=== PATIENT | male | born 1960 | race Caucasian/White ===

== ENCOUNTER 2021-10-08 09:45 | Emergency (ER) | payer MEDICAID ==
[2021-10-08 10:45] LABS: CHLORIDE,CL 107 mEq/L (98-106); SODIUM,NA 143 mEq/L (136-145)
[2021-10-08 10:50] LABS: ESTIMATED GFR > 60 mL/min (>=60)
[2021-10-08 11:01] LABS: CORONAVIRUS COVID-19 NAA NEGATIVE (NEGATIVE)
[2021-10-08] MEDS: Iopamidol 755 Mg/ML 100 ML Bottle IVPUSH ONE (11:34)
== END 2021-10-08 12:10 | disposition home or self-care (01) ==
LOC: CC.ED 09:45 → SUPCPDRO 09:45 → CC.ED 12:10
DX: J18.9 Pneumonia, unspecified organism (principal); I11.0 Hypertensive heart disease with heart failure; I50.9 Heart failure, unspecified; I48.91 Unspecified atrial fibrillation; F17.210 Nicotine dependence, cigarettes, uncomplicated; Z95.0 Presence of cardiac pacemaker; Z86.16 Personal history of COVID-19; Z20.822 Contact with and (suspected) exposure to COVID-19
CPT/HCPCS: 0240U; 36415; 71046; 71275; 80053; 84484; 85025; 85379; 85610; 93005; 99284; 99285-25; Q9967

== ENCOUNTER 2021-10-19 10:03 | Emergency (ER) | payer MEDICAID ==
[2021-10-19] MEDS ORDERED: Furosemide 40 MG Tab PO ONE (11:15)
== END 2021-10-19 12:17 | disposition home or self-care (01) ==
LOC: CC.ED 10:03
DX: I11.0 Hypertensive heart disease with heart failure (principal); I50.9 Heart failure, unspecified; Z79.899 Other long term (current) drug therapy; Z72.0 Tobacco use; Z88.8 Allergy status to other drugs, medicaments and biological substances
CPT/HCPCS: 36415; 71046; 80053; 83735; 83880; 84484; 85025; 93005; 99284; 99285-25; A9270-GY

== ENCOUNTER 2023-06-15 16:04 | Emergency (ER) | payer MEDICAID ==
[2023-06-15 16:21] LABS: BASOPHILS PERCENT AUTO 1.5 % (0-1); EOSINOPHILS ABSOLUTE AUTO 0.03 10^3/uL (0.00-1.50); EOSINOPHILS PERCENT AUTO 0.4 % (0-6); HEMATOCRIT 41.3 % (42.0-52.0); HEMOGLOBIN 13.3 g/dL (14.0-18.0); IMMATURE GRAN ABSOLUTE AUTO 0.01 10^3/uL (0.00-0.49); IMMATURE GRAN PERCENT AUTO 0.1 % (0.0-4.9); LYMPHOCYTES PERCENT AUTO 16.5 % (24-44); MEAN CORPUSCULAR HEMOGLOBIN 31.2 pg (27.0-32.0); MEAN CORPUSCULAR HGB CONC 32.2 g/dL (32.0-36.0); MEAN CORPUSCULAR VOLUME 96.9 fL (83.0-97.0); MONOCYTES ABSOLUTE AUTO 0.84 10^3/uL (0.00-1.50); MONOCYTES PERCENT AUTO 12.6 % (0-10); NEUTROPHILS ABSOLUTE AUTO 4.59 x10^3/uL (1.80-8.00); NEUTROPHILS PERCENT AUTO 68.9 % (41-71); PLATELET COUNT,PLT 190 10^3/uL (150-400); RED BLOOD CELL COUNT 4.26 x10^6/uL (4.50-6.00); WHITE BLOOD CELL COUNT,WBC 6.7 10^3/uL (4.0-11.0)
[2023-06-15 16:39] LABS: ALBUMIN 3.5 g/dL (3.4-5.0); BILIRUBIN TOTAL 4.1 mg/dL (0.0-1.0); C-REACTIVE PROTEIN 3.51 mg/dL (<=0.50); CALCIUM 9.1 mg/dL (8.4-10.1); EST CRCL DRUG DOSING (CG) 43.11 mL/min; MAGNESIUM 2.6 mg/dL (1.8-2.4); PROTEIN TOTAL,TP 6.9 g/dL (6.4-8.2)
[2023-06-15] MEDS: Sodium Chloride 0.9% 1,000 ML IV ONE (17:00)
[2023-06-15 17:46] LABS: CORONAVIRUS COVID-19 NAA NEGATIVE (NEGATIVE); INFLUENZA A NAA NEGATIVE (NEGATIVE); INFLUENZA B NAA NEGATIVE (NEGATIVE)
[2023-06-15] MEDS: fentaNYL 50 MCG/ML SDV IVPUSH ONE (18:29)
[2023-06-15 19:42] LABS: INR 1.89 (0.92-1.18); PROTHROMBIN TIME 19.2 SEC (9.3-11.3)
[2023-06-15] MEDS: Sodium Chloride 0.9% 1,000 ML IV SCH (20:17)
[2023-06-15] MEDS: Ondansetron 4 MG/2 ML SDV IVPUSH STA (20:48)
[2023-06-15] MEDS: HYDROmorphone 0.5 MG/0.5 ML Syringe IVPUSH ONE (21:30)
[2023-06-16 21:41] LABS: AMMONIA 44 umol/L (6-47)
== END 2023-06-15 21:33 ==
LOC: CC.ED 16:04
DX: N17.9 Acute kidney failure, unspecified (principal); K72.00 Acute and subacute hepatic failure without coma; R10.11 Right upper quadrant pain; I25.10 Atherosclerotic heart disease of native coronary artery without angina pectoris; I11.0 Hypertensive heart disease with heart failure; I50.9 Heart failure, unspecified; Z95.0 Presence of cardiac pacemaker; Z79.899 Other long term (current) drug therapy
CPT/HCPCS: 0240U; 36415; 71046; 74176; 80053; 80143; 80307; 82140; 83690; 83735; 83880; 84484; 85025; 85610; 85730; 86140; 93005; 93010; 96361; 96374; 96375; 99284; 99285-25; J1170; J2405; J3010; J7030

== ENCOUNTER 2023-06-25 22:53 | Emergency (ER) | payer MEDICAID ==
[2023-06-25] MEDS: Sodium Chloride 0.9% 1,000 ML IV ONE (23:17)
[2023-06-25 23:48] LABS: BASOPHILS ABSOLUTE AUTO 0.06 10^3/uL (0.00-0.50); EOSINOPHILS ABSOLUTE AUTO 0.08 10^3/uL (0.00-1.50); EOSINOPHILS PERCENT AUTO 1.3 % (0-6); HEMATOCRIT 50.3 % (42.0-52.0); HEMOGLOBIN 16.8 g/dL (14.0-18.0); IMMATURE GRAN ABSOLUTE AUTO 0.01 10^3/uL (0.00-0.49); IMMATURE GRAN PERCENT AUTO 0.2 % (0.0-4.9); LYMPHOCYTES ABSOLUTE AUTO 1.36 10^3/uL (0.60-5.00); LYMPHOCYTES PERCENT AUTO 21.8 % (24-44); MEAN CORPUSCULAR HEMOGLOBIN 30.5 pg (27.0-32.0); MEAN CORPUSCULAR HGB CONC 33.4 g/dL (32.0-36.0); MEAN CORPUSCULAR VOLUME 91.3 fL (83.0-97.0); MONOCYTES ABSOLUTE AUTO 0.88 10^3/uL (0.00-1.50); MONOCYTES PERCENT AUTO 14.1 % (0-10); NEUTROPHILS ABSOLUTE AUTO 3.84 x10^3/uL (1.80-8.00); NEUTROPHILS PERCENT AUTO 61.6 % (41-71); PLATELET COUNT,PLT 212 10^3/uL (150-400); RED BLOOD CELL COUNT 5.51 x10^6/uL (4.50-6.00); WHITE BLOOD CELL COUNT,WBC 6.2 10^3/uL (4.0-11.0)
[2023-06-25 23:59] LABS: LACTIC ACID 3.2 mmol/L (0.4-2.0)
[2023-06-26 00:04] LABS: ALBUMIN 3.4 g/dL (3.4-5.0); BILIRUBIN TOTAL 1.8 mg/dL (0.0-1.0); CALCIUM 8.7 mg/dL (8.4-10.1); EST CRCL DRUG DOSING (CG) 43.11 mL/min; PROTEIN TOTAL,TP 7.4 g/dL (6.4-8.2)
[2023-06-26 00:10] LABS: APPEARANCE,URINE CLEAR (CLEAR); BILIRUBIN,URINE MODERATE (NEGATIVE); COLOR,URINE AMBER (YELLOW); GLUCOSE,URINE NEGATIVE (NEGATIVE); KETONES,URINE TRACE mg/dL (NEGATIVE); LEUKOCYTE ESTERASE,URINE NEGATIVE (NEGATIVE); NITRITE,URINE NEGATIVE (NEGATIVE); OCCULT BLOOD,URINE NEGATIVE (NEGATIVE); PH,URINE 5.5 (4.5-8.0); PROTEIN,URINE 30 mg/dL (NEGATIVE)
[2023-06-26 00:15] LABS: BACTERIA,URINE NOT SEEN /HPF (NOT SEEN); EPITHELIAL CELLS,URINE OCCASIONAL /HPF (NOT SEEN); RBC,URINE NOT SEEN /HPF (0-5); WBC,URINE NOT SEEN /HPF (0-5)
[2023-06-26 00:16] LABS: MUCUS,URINE OCCASIONAL /HPF (NOT SEEN)
[2023-06-26 00:20] LABS: CORONAVIRUS COVID-19 NAA NEGATIVE (NEGATIVE); INFLUENZA A NAA NEGATIVE (NEGATIVE); INFLUENZA B NAA NEGATIVE (NEGATIVE); RESPIRATORY SYNCYTIAL VIR NAA NEGATIVE (NEGATIVE)
[2023-06-26] MEDS: Potassium Chloride 20 MEQ Tab.ER PO ONE (00:24)
[2023-06-26] MEDS: Sodium Chloride 0.9% 1,000 ML IV ONE (00:26)
== END 2023-06-26 00:45 | disposition home or self-care (01) ==
LOC: CC.ED 22:53
DX: E87.6 Hypokalemia (principal); E16.2 Hypoglycemia, unspecified; R74.01 Elevation of levels of liver transaminase levels; I11.0 Hypertensive heart disease with heart failure; I50.9 Heart failure, unspecified; Z79.899 Other long term (current) drug therapy
CPT/HCPCS: 0241U; 36415; 80053; 81001; 83605; 83735; 83880; 84484; 85025; 87040; 93005; 96360; 99284-25; A9270-GY; J7030

== ENCOUNTER 2023-11-04 07:23 | Emergency (ER) | payer MEDICAID ==
[2023-11-04] MEDS ORDERED: Ondansetron 4 MG/2 ML SDV IVPUSH PRN (07:54)
[2023-11-04 07:58] LABS: BASOPHILS ABSOLUTE AUTO 0.11 10^3/uL (0.00-0.50); BASOPHILS PERCENT AUTO 1.5 % (0-1); EOSINOPHILS ABSOLUTE AUTO 0.03 10^3/uL (0.00-1.50); EOSINOPHILS PERCENT AUTO 0.4 % (0-6); HEMATOCRIT 42.8 % (42.0-52.0); HEMOGLOBIN 14.1 g/dL (14.0-18.0); IMMATURE GRAN ABSOLUTE AUTO 0.01 10^3/uL (0.00-0.49); IMMATURE GRAN PERCENT AUTO 0.1 % (0.0-4.9); LYMPHOCYTES ABSOLUTE AUTO 1.08 10^3/uL (0.60-5.00); LYMPHOCYTES PERCENT AUTO 14.6 % (24-44); MEAN CORPUSCULAR HEMOGLOBIN 31.5 pg (27.0-32.0); MEAN CORPUSCULAR HGB CONC 32.9 g/dL (32.0-36.0); MEAN CORPUSCULAR VOLUME 95.5 fL (83.0-97.0); MONOCYTES ABSOLUTE AUTO 0.75 10^3/uL (0.00-1.50); MONOCYTES PERCENT AUTO 10.1 % (0-10); NEUTROPHILS ABSOLUTE AUTO 5.43 x10^3/uL (1.80-8.00); NEUTROPHILS PERCENT AUTO 73.3 % (41-71); PLATELET COUNT,PLT 187 10^3/uL (150-400); RED BLOOD CELL COUNT 4.48 x10^6/uL (4.50-6.00); WHITE BLOOD CELL COUNT,WBC 7.4 10^3/uL (4.0-11.0)
[2023-11-04 08:12] LABS: INR 1.77 (0.92-1.18); PROTHROMBIN TIME 18.1 SEC (9.3-11.3); PTT,PARTIAL THROMBOPLSTIN TIME 26.3 SEC (20.0-30.0)
[2023-11-04 08:19] LABS: ALBUMIN 3.7 g/dL (3.4-5.0); BILIRUBIN TOTAL 3.6 mg/dL (0.0-1.0); CALCIUM 9.6 mg/dL (8.4-10.1); CREATININE 2.4 mg/dL (0.7-1.3); EST CRCL DRUG DOSING (CG) 35.48 mL/min; MAGNESIUM 2.3 mg/dL (1.8-2.4); PROTEIN TOTAL,TP 7.3 g/dL (6.4-8.2)
[2023-11-04 08:31] LABS: APPEARANCE,URINE CLEAR (CLEAR); BILIRUBIN,URINE NEGATIVE (NEGATIVE); COLOR,URINE DARK YELLOW (YELLOW); GLUCOSE,URINE NEGATIVE (NEGATIVE); KETONES,URINE NEGATIVE (NEGATIVE); LEUKOCYTE ESTERASE,URINE NEGATIVE (NEGATIVE); NITRITE,URINE NEGATIVE (NEGATIVE); OCCULT BLOOD,URINE NEGATIVE (NEGATIVE); PH,URINE 5.5 (4.5-8.0); PROTEIN,URINE NEGATIVE (NEGATIVE)
[2023-11-04 08:39] LABS: AMPHETAMINES,URINE NEGATIVE (NEGATIVE); BARBITURATES,URINE NEGATIVE (NEGATIVE); BENZODIAZEPINE,URINE NEGATIVE (NEGATIVE); MDMA (ECSTASY), URINE NEGATIVE (NEGATIVE); METHADONE,URINE NEGATIVE (NEGATIVE); METHAMPHETAMINES,URINE POSITIVE (NEGATIVE); OPIATES,URINE NEGATIVE (NEGATIVE); OXYCODONE,URINE NEGATIVE (NEGATIVE); PHENCYCLIDINE,URINE NEGATIVE (NEGATIVE); TCA,URINE NEGATIVE (NEGATIVE)
[2023-11-04] MEDS ORDERED: Naloxone 2 MG/2 ML Syringe IVPUSH PRN (09:12)
[2023-11-04] MEDS: fentaNYL 50 MCG/ML SDV IVPUSH ONE (09:39)
[2023-11-04] MEDS: HYDROmorphone 0.5 MG/0.5 ML Syringe IVPUSH ONE (10:34)
[2023-11-04] MEDS: Furosemide 40 MG/4 ML VIAL IVPUSH ONE (10:34)
== END 2023-11-04 11:26 ==
LOC: CC.ED 07:23
DX: I11.0 Hypertensive heart disease with heart failure (principal); I50.9 Heart failure, unspecified; K76.7 Hepatorenal syndrome; F15.90 Other stimulant use, unspecified, uncomplicated; I48.91 Unspecified atrial fibrillation; F17.210 Nicotine dependence, cigarettes, uncomplicated; Z95.0 Presence of cardiac pacemaker; Z79.01 Long term (current) use of anticoagulants; Z79.899 Other long term (current) drug therapy
CPT/HCPCS: 36415; 71046; 74019; 74176; 80053; 80305-QW; 81003; 83690; 83735; 83880; 84484; 85025; 85610; 85730; 93005; 96374; 96375; 99284; 99285-25; J1170; J1940; J3010

== ENCOUNTER 2023-11-14 00:32 | Emergency (ER) | payer MEDICAID ==
[2023-11-14] MEDS ORDERED: Ondansetron 4 MG/2 ML SDV ONE (00:58)
[2023-11-14] MEDS ORDERED: Sodium Chloride 0.9% 1,000 ML ONE (00:58)
[2023-11-14] MEDS ORDERED: Sodium Chloride 0.9% 1,000 ML IV ONE (01:05)
[2023-11-14] MEDS ORDERED: Ondansetron 4 MG/2 ML SDV IVPUSH ONE (01:07)
[2023-11-14] MEDS ORDERED: Pantoprazole 40 MG Vial ONE (01:19)
[2023-11-14] MEDS ORDERED: Pantoprazole 40 MG Vial IVPUSH ONE (01:20)
[2023-11-14] MEDS ORDERED: Take Home: Ondansetron 4 MG Tab.DIS, 2 Tab Pack ONE (01:52)
[2023-11-14] MEDS ORDERED: Take Home: Ondansetron 4 MG Tab.DIS, 2 Tab Pack PO ONE (02:00)
[2023-11-14 15:19] LABS: BASOPHILS ABSOLUTE AUTO 0.07 10^3/uL (0.00-0.50); BASOPHILS PERCENT AUTO 1.1 % (0-1); EOSINOPHILS ABSOLUTE AUTO 0.02 10^3/uL (0.00-1.50); EOSINOPHILS PERCENT AUTO 0.3 % (0-6); HEMATOCRIT 41.4 % (42.0-52.0); HEMOGLOBIN 13.8 g/dL (14.0-18.0); IMMATURE GRAN ABSOLUTE AUTO 0.01 10^3/uL (0.00-0.49); IMMATURE GRAN PERCENT AUTO 0.2 % (0.0-4.9); LYMPHOCYTES ABSOLUTE AUTO 1.04 10^3/uL (0.60-5.00); MEAN CORPUSCULAR HEMOGLOBIN 31.2 pg (27.0-32.0); MEAN CORPUSCULAR HGB CONC 33.3 g/dL (32.0-36.0); MEAN CORPUSCULAR VOLUME 93.5 fL (83.0-97.0); MONOCYTES PERCENT AUTO 9.8 % (0-10); NEUTROPHILS ABSOLUTE AUTO 4.36 x10^3/uL (1.80-8.00); NEUTROPHILS PERCENT AUTO 71.6 % (41-71); PLATELET COUNT,PLT 183 10^3/uL (150-400); RED BLOOD CELL COUNT 4.43 x10^6/uL (4.50-6.00); WHITE BLOOD CELL COUNT,WBC 6.1 10^3/uL (4.0-11.0)
[2023-11-14 15:20] LABS: ALBUMIN 3.5 g/dL (3.4-5.0); BILIRUBIN TOTAL 2.1 mg/dL (0.0-1.0); BLOOD UREA NITROGEN,BUN 32 mg/dL (7-18); CARBON DIOXIDE,CO2 26 mmol/L (21-32); CHLORIDE,CL 97 mEq/L (98-106); ESTIMATED GFR 37 mL/min (>=60); GLUCOSE RANDOM 124 mg/dL (75-99); POTASSIUM,K 4.2 mEq/L (3.5-5.0); PROTEIN TOTAL,TP 7.6 g/dL (6.4-8.2); SODIUM,NA 139 mEq/L (136-145)
[2023-11-14 15:21] LABS: ALANINE AMINOTRANSFERASE,ALT 143 U/L (12-78); ALKALINE PHOSPHATASE 130 U/L (46-116); ASPARTATE AMNIOTRANSFERASE,AST 45 U/L (15-37); C-REACTIVE PROTEIN 1.82 mg/dL (<=0.50); LIPASE 11 U/L (16-77)
== END 2023-11-14 02:10 | disposition home or self-care (01) ==
LOC: CC.ED 00:32
DX: R11.2 Nausea with vomiting, unspecified (principal); I50.9 Heart failure, unspecified; Z87.891 Personal history of nicotine dependence
CPT/HCPCS: 36415; 80053; 83690; 85025; 86140; 96361; 96374; 96375; 99284-25; A9270-GY; J2405; J2470; J7030

== ENCOUNTER 2024-01-30 13:46 | Inpatient (IN) | payer MEDICAID ==
[2024-01-30] MEDS ORDERED: Sodium Chloride 0.9% 10 ML Syringe FLUSH PRN ×3 (14:40→17:08)
[2024-01-30] MEDS ORDERED: Naloxone 2 MG/2 ML Syringe IVPUSH PRN (14:40)
[2024-01-30] MEDS ORDERED: Ondansetron 4 MG Tab.DIS PO PRN (14:40)
[2024-01-30 15:21] LABS: BASOPHILS ABSOLUTE AUTO 0.02 10^3/uL (0.00-0.50); BASOPHILS PERCENT AUTO 0.1 % (0-1); HEMATOCRIT 39.5 % (42.0-52.0); HEMOGLOBIN 13.3 g/dL (14.0-18.0); IMMATURE GRAN ABSOLUTE AUTO 0.03 10^3/uL (0.00-0.49); IMMATURE GRAN PERCENT AUTO 0.2 % (0.0-4.9); LYMPHOCYTES ABSOLUTE AUTO 0.62 10^3/uL (0.60-5.00); LYMPHOCYTES PERCENT AUTO 3.9 % (24-44); MEAN CORPUSCULAR HEMOGLOBIN 30.8 pg (27.0-32.0); MEAN CORPUSCULAR HGB CONC 33.7 g/dL (32.0-36.0); MEAN CORPUSCULAR VOLUME 91.4 fL (83.0-97.0); MONOCYTES ABSOLUTE AUTO 1.28 10^3/uL (0.00-1.50); NEUTROPHILS ABSOLUTE AUTO 14.15 x10^3/uL (1.80-8.00); NEUTROPHILS PERCENT AUTO 87.8 % (41-71); PLATELET COUNT,PLT 182 10^3/uL (150-400); RED BLOOD CELL COUNT 4.32 x10^6/uL (4.50-6.00); WHITE BLOOD CELL COUNT,WBC 16.1 10^3/uL (4.0-11.0)
[2024-01-30 15:39] LABS: BILIRUBIN TOTAL 4.1 mg/dL (0.0-1.0); CALCIUM 9.2 mg/dL (8.4-10.1); EST CRCL DRUG DOSING (CG) 30.41 mL/min; PROTEIN TOTAL,TP 7.9 g/dL (6.4-8.2)
[2024-01-30] MEDS: Ondansetron 4 MG/2 ML SDV IV PRN (15:41)
[2024-01-30] MEDS: HYDROmorphone 0.5 MG/0.5 ML Syringe IVPUSH PRN (15:43)
[2024-01-30 16:14] LABS: CREATININE 2.8 mg/dL (0.7-1.3); POTASSIUM,K 6.2 mEq/L (3.5-5.0)
[2024-01-30] MEDS: Bumetanide 2.5 MG/10 ML MDV IVPUSH ONE (16:43)
[2024-01-30] MEDS: Sodium Zirconium Cyclosilicate 10 GM Packet PO STA (17:02)
[2024-01-30] MEDS: Insulin Regular, Human 100 Units/ML 10 ML Vial IVPUSH ONE (17:04)
[2024-01-30] MEDS: 50% Dextrose in Water 50 ML Syringe IV ONE (17:06)
[2024-01-30] MEDS: Calcium Gluconate 10% 1 GM/10 ML SDV IVPUSH ONE (17:34)
[2024-01-30] MEDS: Dextrose 10% in Water 500 ML IV SCH (17:50)
[2024-01-30] MEDS: Ondansetron 4 MG/2 ML SDV IVPUSH STA (18:30)
== END 2024-01-30 18:58 | DRG 291 ==
LOC: UNDOADMIN 13:46 → CC.MS 13:46
PROVIDERS: ADMIT Physician Assistant Medical; ATTEND Physician Assistant Medical
DX: I11.0 Hypertensive heart disease with heart failure (principal); I50.23 Acute on chronic systolic (congestive) heart failure; I48.91 Unspecified atrial fibrillation; I42.9 Cardiomyopathy, unspecified; M10.9 Gout, unspecified; F17.210 Nicotine dependence, cigarettes, uncomplicated; Z79.51 Long term (current) use of inhaled steroids; Z79.01 Long term (current) use of anticoagulants; Z79.84 Long term (current) use of oral hypoglycemic drugs; Z79.899 Other long term (current) drug therapy; Z95.0 Presence of cardiac pacemaker
CPT/HCPCS: 36415; 80053; 83880; 85025; 93005; 93010; 99236; A9270-GY; J0612; J1171; J2405; J3490

== ENCOUNTER 2024-07-06 17:12 | Observation (INO) | payer MEDICAID ==
[2024-07-06] MEDS ORDERED: Ondansetron 4 MG/2 ML SDV IV PRN (17:31)
[2024-07-06] MEDS ORDERED: Ondansetron 4 MG Tab.DIS PO PRN (17:31)
[2024-07-06] MEDS ORDERED: Acetaminophen 325 MG Tab PO PRN (17:31)
[2024-07-06] MEDS ORDERED: Temazepam 15 MG Cap PO PRN (17:31)
[2024-07-06] MEDS ORDERED: Sodium Chloride 0.9% 10 ML Syringe FLUSH PRN (17:31)
[2024-07-06] MEDS: Sodium Chloride 0.9% 1,000 ML IV SCH (18:19)
[2024-07-06] MEDS: Bumetanide 2.5 MG/10 ML MDV IVPUSH ONE (18:30)
[2024-07-06] MEDS ORDERED: Albuterol/Ipratropium 3.0-0.5 MG/3 ML Neb Soln NEB PRN (20:24)
[2024-07-06] MEDS ORDERED: Non-Formulary Medication 1 Each (Sacubitril/Valsartan 1 EACH Tablet) PO SCH (20:30)
[2024-07-06] MEDS: Carvedilol 3.125 MG Tab PO SCH (20:52)
[2024-07-06] MEDS: Apixaban 5 MG Tab PO SCH (20:53)
[2024-07-06] MEDS: Formoterol/Mometasone 100-5 MCG 8.8 GM Inhaler INH SCH (20:53)
[2024-07-06] MEDS: Acetaminophen/HYDROcodone 325-5 MG Tab PO PRN (20:53)
[2024-07-06] MEDS: Lactulose Soln 10 GM/15 ML 30 ML UD Cup PO SCH (20:56)
[2024-07-06] MEDS: Carvedilol 12.5 MG Tab PO SCH (22:08)
[2024-07-07 08:11] LABS: BASOPHILS ABSOLUTE AUTO 0.07 10^3/uL (0.00-0.50); EOSINOPHILS PERCENT AUTO 1.5 % (0-6); HEMATOCRIT 38.3 % (42.0-52.0); HEMOGLOBIN 12.8 g/dL (14.0-18.0); IMMATURE GRAN ABSOLUTE AUTO 0.01 10^3/uL (0.00-0.49); IMMATURE GRAN PERCENT AUTO 0.1 % (0.0-4.9); LYMPHOCYTES ABSOLUTE AUTO 1.34 10^3/uL (0.60-5.00); LYMPHOCYTES PERCENT AUTO 19.7 % (24-44); MEAN CORPUSCULAR HEMOGLOBIN 31.7 pg (27.0-32.0); MEAN CORPUSCULAR HGB CONC 33.4 g/dL (32.0-36.0); MEAN CORPUSCULAR VOLUME 94.8 fL (83.0-97.0); MONOCYTES ABSOLUTE AUTO 0.86 10^3/uL (0.00-1.50); MONOCYTES PERCENT AUTO 12.6 % (0-10); NEUTROPHILS ABSOLUTE AUTO 4.42 x10^3/uL (1.80-8.00); NEUTROPHILS PERCENT AUTO 65.1 % (41-71); PLATELET COUNT,PLT 149 10^3/uL (150-400); RED BLOOD CELL COUNT 4.04 x10^6/uL (4.50-6.00); WHITE BLOOD CELL COUNT,WBC 6.8 10^3/uL (4.0-11.0)
[2024-07-07] MEDS: Potassium Chloride 10 MEQ Tab.ER PO SCH (08:20)
[2024-07-07] MEDS: Empagliflozin 10 MG Tab PO SCH (08:20)
[2024-07-07] MEDS: Spironolactone 25 MG Tab PO SCH (08:20)
[2024-07-07] MEDS: Pantoprazole 40 MG Tab.CR PO SCH (08:21)
[2024-07-07] MEDS: Bumetanide 2.5 MG/10 ML MDV IVPUSH SCH (08:22)
[2024-07-07 08:37] LABS: ALBUMIN 3.4 g/dL (3.4-5.0); BILIRUBIN TOTAL 1.5 mg/dL (0.0-1.0); CALCIUM 8.2 mg/dL (8.4-10.1); CREATININE 2.1 mg/dL (0.7-1.3); EST CRCL DRUG DOSING (CG) 40.54 mL/min; POTASSIUM,K 3.6 mEq/L (3.5-5.0); PROTEIN TOTAL,TP 6.9 g/dL (6.4-8.2)
[2024-07-07] MEDS: Metolazone 5 MG Tab PO ONE (11:00)
[2024-07-07] MEDS ORDERED: Lactulose Soln 10 GM/15 ML 30 ML UD Cup PO SCH (20:30)
== END 2024-07-07 11:40 | disposition home or self-care (01) ==
LOC: CC.MS 17:12
PROVIDERS: ADMIT Nurse Practitioner Family; ATTEND Nurse Practitioner Family
DX: I13.0 Hypertensive heart and chronic kidney disease with heart failure and stage 1 through stage 4 chronic kidney disease, or unspecified chronic kidney disease (principal); I50.9 Heart failure, unspecified; N18.9 Chronic kidney disease, unspecified; N17.9 Acute kidney failure, unspecified; R79.89 Other specified abnormal findings of blood chemistry; Z79.899 Other long term (current) drug therapy; Z79.01 Long term (current) use of anticoagulants
CPT/HCPCS: 36415; 80053; 85025; 94640; 99223; 99238; A9270-GY; J1939; J7030